=== PATIENT | male | born 1960 | race African-American/Black ===

== ENCOUNTER → 2020-05-15 12:58 | Outpatient (BNVA) | payer MEDICAID, SELFPAY | PROVIDERS: PCP Internal Medicine; Referring Provider Internal Medicine; Visit Provider Physician Assistant | DX: E66.01 Morbid (severe) obesity due to excess calories (principal); Z68.41 Body mass index [BMI] 40.0-44.9, adult | CPT/HCPCS: 99202; 99205 ==

== ENCOUNTER → 2020-05-22 09:14 | Outpatient (BNVA) | payer MEDICAID, SELFPAY | PROVIDERS: PCP Internal Medicine; Visit Provider Dietitian, Registered | DX: Z76.89 Persons encountering health services in other specified circumstances (principal) ==

== ENCOUNTER → 2020-07-09 08:10 | Outpatient (BNVA) | payer MEDICAID, SELFPAY | PROVIDERS: PCP Internal Medicine; Visit Provider Surgery | DX: Z76.89 Persons encountering health services in other specified circumstances (principal) ==

== ENCOUNTER → 2020-10-11 14:00 | Outpatient (BNVA) | payer MEDICARE, SELFPAY | PROVIDERS: Visit Provider Internal Medicine | DX: I51.7 Cardiomegaly (principal); I10 Essential (primary) hypertension; E66.01 Morbid (severe) obesity due to excess calories | CPT/HCPCS: 93005; 99212 ==

== ENCOUNTER → 2021-03-18 12:48 | Outpatient (BNVA) | payer OTHER, SELFPAY | PROVIDERS: Referring Provider Internal Medicine; Visit Provider Surgery | DX: K42.9 Umbilical hernia without obstruction or gangrene (principal); E66.01 Morbid (severe) obesity due to excess calories | CPT/HCPCS: 99202 ==

== ENCOUNTER 2021-04-16 07:39 | Day surgery (SDC) | payer OTHER, SELFPAY ==
[2021-04-10 14:36] VITALS: BMI 44.6
[2021-04-16] VITALS (8 sets, daily range): BP systolic 136–151; BP diastolic 70–91; PULSE 63–71; RESP 14–20; TEMP 36.2–36.6; O2SAT 94–99; BMI 43.5
--- NOTE | 2021-04-16 08:23 | HO.ANESPROP2 ---
[facility] Active Problems Active Problems: All Active Problems (Updated 07/09/20 @ 10:43 by Tim Gallegos MD) Umbilical hernia (Acute) Essential hypertension (Acute) LVH (left ventricular hypertrophy) (Acute) Knee pain (Acute) Hyperlipidemia (Acute) Non-insulin dependent diabetes mellitus (Acute) Morbid obesity (Acute) Past Medical History Medical History (Updated 03/18/21 @ 13:19 by Dereje Rouse MD) Essential hypertension Hyperlipidemia Hypertension Knee pain LVH (left ventricular hypertrophy) Non-insulin dependent diabetes mellitus IBAN on CPAP Pre-diabetes Umbilical hernia Family History Family History Father No problems noted. Mother No problems noted. Other Morbid obesity Family history of problems with anesthesia: No Surgical History Surgical History Hx of cholecystectomy Hx of knee surgery Morbid obesity History of Problems with Anesthesia: No Social History Social History Alcohol intake: former Patient Tobacco Use Status: Never used Tobacco Use of substances other than those prescribed or required for medical reasons: No Are you DNR?: No Advance Directives: No Advance Directives Information Provided: Yes Meds Allergies Allergy/AdvReac Type Severity Reaction Status Date / Time penicillin G Allergy Unknown hives Verified 03/18/21 13:04 Penicillins [PENICILLINS] Allergy Unknown RASH,TINGLING Verified 03/18/21 13:04 SENSATION Home Medications Medication Instructions Recorded Confirmed Last Taken Type acetaminophen 325 mg capsule 325 mg PO QID PRN 05/15/20 03/18/21 Unknown History amlodipine 10 mg tablet 10 mg PO DAILY 05/15/20 03/18/21 04/16/21 05:45 History atorvastatin 10 mg tablet 10 mg PO BEDTIME 05/15/20 03/18/21 04/16/21 05:45 History cholecalciferol (vitamin D3) 250 250 mcg PO DAILY 05/15/20 03/18/21 Unknown History mcg (10,000 unit) capsule losartan 100 mg tablet 100 mg PO DAILY 05/15/20 03/18/21 Unknown History meloxicam 15 mg tablet 15 mg PO DAILY 05/15/20 03/18/21 Unknown History metformin 850 mg tablet 850 mg PO DAILY 05/15/20 03/18/21 Unknown History metoprolol succinate 50 mg 50 mg PO DAILY 05/15/20 03/18/21 Unknown History tablet,extended release 24 hr spironolactone 25 mg tablet 25 mg PO DAILY 05/15/20 03/18/21 Unknown History chlorthalidone 25 mg tablet 25 mg PO DAILY 10/11/20 03/18/21 Unknown History cyclobenzaprine 5 mg tablet 5 mg PO BID 10/11/20 03/18/21 Unknown History diclofenac potassium 50 mg tablet 50 mg PO BID 03/18/21 03/18/21 Unknown History Exam Exam Date and Time: April 16, [id number] Height,Weight and Vital Signs: Height 5 ft 6 in Weight 122.47 kg Last Vital Signs Temp 97.1 F 04/16/21 08:01 Pulse 69 04/16/21 08:01 Resp 20 04/16/21 08:01 BP 146/89 H 04/16/21 08:01 Pulse Ox 97 04/16/21 08:01 Airway Mallampati Class: III TM Dist: <=3cm Neck ROM: Full Loose/Missing/Broken Teeth: No Heart: ok Lungs: ok Assessment and Plan Final Anesthetic Review Family History of Problems with Anesthesia: No History of Problems with Anesthesia: No NPO: Yes ASA Class: III Final Preanesthetic Review: No Changes in Pt Med Stat, Meds/Allgs Chart Reviewed, Consent Obtained/Reviewed and Anes Risks/Benef Reviewed Patient Risk: High Procedure Risk: Low Anesthetic Plan Anesthetic Plan: GA and Agree w/ Assess. and Plan Disposition: Standard PACU
[2021-04-16 08:24] LABS: Glucose, Whole Blood 117 mg/dL (60-115)
--- NOTE | 2021-04-16 08:24 | MHC.SHP ---
Pre-Procedural Eval Section A Date of Service: 04/16/21 Section B Chief Complaint: Umbilical Hernia Allergies: Allergies Allergy/AdvReac Type Severity Reaction Status Date / Time penicillin G Allergy Unknown hives Verified 03/18/21 13:04 Penicillins [PENICILLINS] Allergy Unknown RASH,TINGLING Verified 03/18/21 13:04 SENSATION Plan I have reviewed the history and physical and performed a pertinent physical examination on my patient. No changes have occurred unless specified.
[2021-04-16] MEDS: Lactated Ringers 1,000 ML 100 ML IVCONT (08:56)
--- NOTE | 2021-04-16 09:51 | P.OP_ITS ---
Operative Note Operative Note Date of Service: 04/16/21 Narrative: Preop diagnosis: Umbilical hernia Postop diagnosis: Umbilical hernia Procedure: Repair of umbilical hernia with Ventralex mesh Surgeon: Dereje Rouse MD temporary office assistant: SUSI Encinas Patient is a 60-year-old male with a reducible mass on the umbilicus consistent with an umbilical hernia. In view of symptoms he wanted to proceed with repair. He understood the technique of repair with mesh. He was aware of the risks, benefits, and alternatives He was brought to the operating room and placed supine on the table under general anesthesia via endotracheal tube. The abdomen is prepped and draped in the usual sterile fashion. A surgical time-out was done. The patient received cefazolin 2 g IV preoperatively. I infiltrated the planned line of incision using lidocaine 1%. I then made a transverse curvilinear incision on the supraumbilical margin using a blade 15. This was carried down through the full-thickness of skin and subcutaneous fat to expose the fascia. We then lifted up the umbilicus as a flap off of the rest of the fascia with sharp dissection. By doing so was able to see the umbilical hernia. This was fat containing. We continued to gently dissect the rest of the hernia off of the umbilicus. We continued to divide adhesions on the fascial margins that during this hernia. By doing so was able to eventually reduce the entire hernia contents. I sharply and bluntly dissected the underside to create space for the mesh around the fascial defect. The fascial defect was about 2.5 cm. I then positioned the medium-sized Ventralex mesh under the fascia to cover the entire defect. This was flattened. I then secured this mesh with a Prolene 2-0 stitch to each fascial strap on both sides. The fascial straps were then trimmed. I closed the fascial defect with a f [id number] Maxon 1 stitch I irrigated. I packed the umbilicus back to the fascia with a Dexon 3-0 stitch to re-create the dimple. The subdermal layer was reapposed Dexon 3-0 interrupted sutures. Skin closure was achieved with Dexon 4-0 subcuticular running stitch. The area was infiltrated with Marcaine 0.5 postop for postop analgesia. Steri-Strips and dressings were applied. The patient tolerated procedure well. There were no complication noted. Initial and final counts of sponges and instruments were correct. Estimated blood loss was about 2 cc. The patient was extubated without difficulty in the operating room and transferred to the recovery room with stable vital signs.
--- NOTE | 2021-04-16 09:55 | P.BOP_ITS ---
Brief Operative Note Date of Service: 04/16/21 Pre-op diagnosis: Umbilical hernia Post-op diagnosis: same Procedure: Repair of umbilical hernia with mesh Implants: Mesh Surgeon: Dereje Rouse MD Anesthesia: GETA Was an Sld Inclusion Teacher used for this Procedure?: Yes Sld Inclusion Teacher: Karrie Encinas Estimated blood loss (mL): 2 Pathology: none sent Condition: stable Disposition: PACU
[2021-04-16] MEDS: Acetaminophen 325 MG TABLET 650 MG PO (10:38)
[2021-04-16] MEDS: oxyCODONE HCl Immed Release 5 MG TABLET 10 MG PO (10:39)
== END 2021-04-16 12:10 | disposition home or self-care (01) ==
PROVIDERS: PCP Internal Medicine; Visit Provider Surgery
PROC: (CPT 49585; principal; 2021-04-16 09:10)
DX: K42.9 Umbilical hernia without obstruction or gangrene (principal); I10 Essential (primary) hypertension; E11.9 Type 2 diabetes mellitus without complications; E66.01 Morbid (severe) obesity due to excess calories; Z68.41 Body mass index [BMI] 40.0-44.9, adult; Z79.84 Long term (current) use of oral hypoglycemic drugs; Z79.899 Other long term (current) drug therapy; Z88.0 Allergy status to penicillin
CPT/HCPCS: 49585; 82947; C1781; J0690; J1100; J2250; J2405; J3010

== ENCOUNTER → 2021-05-01 10:42 | Outpatient (BNVA) | payer OTHER, SELFPAY | PROVIDERS: PCP Internal Medicine; Visit Provider Surgery | DX: K42.9 Umbilical hernia without obstruction or gangrene (principal); E66.01 Morbid (severe) obesity due to excess calories; I10 Essential (primary) hypertension; I51.7 Cardiomegaly; E78.5 Hyperlipidemia, unspecified; E11.9 Type 2 diabetes mellitus without complications; G47.33 Obstructive sleep apnea (adult) (pediatric); Z88.1 Allergy status to other antibiotic agents; Z99.89 Dependence on other enabling machines and devices; Z79.84 Long term (current) use of oral hypoglycemic drugs; Z79.899 Other long term (current) drug therapy | CPT/HCPCS: 99212 ==

== ENCOUNTER 2021-05-06 13:41 | Outpatient (REF) | payer OTHER, SELFPAY | END 2021-05-06 13:42 | disposition home or self-care (01) | LOC: HO.LNP 13:41 | PROVIDERS: PCP Internal Medicine; Referring Provider Internal Medicine; Visit Provider Surgery | DX: L98.9 Disorder of the skin and subcutaneous tissue, unspecified (principal) | CPT/HCPCS: 11402; 88304; 88305; 99212 ==

== ENCOUNTER → 2021-05-22 12:47 | Outpatient (BNVA) | payer OTHER, SELFPAY | PROVIDERS: PCP Internal Medicine; Referring Provider Internal Medicine; Visit Provider Surgery | DX: Z48.817 Encounter for surgical aftercare following surgery on the skin and subcutaneous tissue (principal); Z87.2 Personal history of diseases of the skin and subcutaneous tissue | CPT/HCPCS: 99212 ==

== ENCOUNTER → 2022-02-26 14:56 | Outpatient (BNVA) | payer OTHER, SELFPAY | PROVIDERS: PCP Internal Medicine; Referring Provider Internal Medicine; Visit Provider Internal Medicine | DX: I51.7 Cardiomegaly (principal); I10 Essential (primary) hypertension; E11.9 Type 2 diabetes mellitus without complications; E66.01 Morbid (severe) obesity due to excess calories; Z68.41 Body mass index [BMI] 40.0-44.9, adult | CPT/HCPCS: 93005; 99212 ==

== ENCOUNTER → 2022-03-31 09:58 | Outpatient (BNVA) | payer OTHER, SELFPAY | PROVIDERS: PCP Internal Medicine; Referring Provider Internal Medicine; Visit Provider Physician Assistant | DX: Z01.818 Encounter for other preprocedural examination (principal) | CPT/HCPCS: 99202 ==

== ENCOUNTER → 2022-04-01 09:14 | Outpatient (REF) | payer OTHER, SELFPAY ==
--- NOTE | 2022-04-01 09:21 | CA_ITS ---
Transthoracic Echocardiogram Patient (Last, First, Middle): Ross Wilkes, Gender: Male Date of : 1960 Age: 61 Procedure Date: 04/01/2022 Procedure Type: Transthoracic Echocardiogram Location: OP Height: 170.18 cm Weight: 129.28 kg BSA: 2.35 m2 Heart Rate: 63 bpm BP: 150 / 100 mmHg Shirrer: MINOO Frazier MD: Agustin Somers MD Hydraulic Barker Operator: Kendall Garvey MD Symptoms: I51.7 - Cardiomegaly Study Quality: Fair/Contrast ECG Rhythm: Sinus Conclusions: - 1. Normal LV systolic function with mild asymmetric septal hypertrophy with normal diastolic filling pattern 2. Normal cardiac valvular Doppler 3. No gross pericardial effusion Findings Procedure Information Contrast agent, definity, is being given per protocol without apparent complications. Left Ventricle Normal left ventricular size, thickness, and systolic function. The visually estimated ejection fraction is between 60-65%. Spectral Doppler is indicative of a normal filling pattern. There is mild septal asymmetric hypertrophy. Right Ventricle Normal right ventricular cavity size and systolic function. Atria The left atrium is normal in size. Interatrial shunt cannot be excluded. The right atrium was not well visualized. Aortic Valve The aortic valve was not well visualized. There is no aortic valve stenosis. There is no aortic valve regurgitation. Mitral Valve Normal mitral valve structure and function. There is trace mitral valve regurgitation. There is no mitral valve stenosis. Pulmonic Valve The pulmonic valve was not well visualized. Tricuspid Valve Likely normal tricuspid valve structure and function. Tricuspid regurgitation envelope is inadequate for calculation of right ventricular systolic pressure. Normal right atrial pressure. Great Vessels All visible segments of the aorta are normal in size. The pulmonary artery was not well visualized. Venous The inferior vena cava is normal in size. Pericardium/Pleural There is no evidence of pericardial effusion. Measurements 2D Linear Measurements IVSd: 1.56 0.6-0.9/0.6-1.0 cm LVIDd: 3.70 3.9-5.3/4.2-5.9 cm LVIDd Index: 1.57 2.4-3.2/2.2-3.1 cm/m2 LVIDs: 2.77 2.0-3.6 cm LVPWd: 1.12 0.7-1.1 cm Ao Root: 3.30 2.1-3.5 cm LA Diam: 4.10 2.7-3.8/3.0-4.0 cm LAIDs Index: 1.74 1.5-2.3 cm/m2 LV Mass: 217.40 67-162/88-224 g LV Mass Index: 92.51 43-95/49-115 g/m2 LVOT Diam: 1.90 3.0+(-)1.3 cm 2D Systolic Function EF 4C: 67.50 >55% EF 2C: 58.10 >55% EF BiP: 61.20 >55% Mitral Valve MV Pk E: 0.79 MV PK A: 0.88 MV Decel Time: 219.00 E/A: 0.90 E'Lateral: 8.49 E'Medial: 7.72 E/E' Med: 10.30 E/E' Lat: 9.30 PHT: 64.00 MVA PHT: 3.44 Decel [place]: 3.61 Aortic Valve AoV Pk Alban: 1.58 AoV Mn Alban: 1.11 AoV VTI: 0.35 AoV Pk Grad: 10.00 Aov Mn Grad: 6.00 FADI Cont.VTI: 2.02 LVOT LVOT Pk [place]: 1.02 LVOT Mn [place]: 0.78 LVOT VTI: 0.25 LVOT Pk Grad: 4.00 LVOT Mn Grad: 3.00 LVOT Diam: 1.90 LVOT Area: 2.84 Diastolic Function MV Pk E: 0.79 MV Pk A: 0.88 E/A: 0.90 E'Medial: 7.72 E/E' Med: 10.30 E' Laterial: 8.49 E/E' Lat: 9.30 Right Ventricle TAPSE (mm): 27.00 TVS' Alban: 10.60 Tricuspid Valve RA Press: 3.00 Great Vessels Aorta Ao Root-2D: 3.30 2.0-3.7 cm Ao Asc: 3.40 2.1-3.4 cm Pulmonary Valve PV Pk Alban: 0.86 Peak PV Grad: 3.00 Updated in Other Vendor System with Status of Final Kendall Garvey MD electronically signed on 04/02/2022 5:42:35 PM with status of Final
== END ==
LOC: HO.CARD 09:14
PROVIDERS: Visit Provider Internal Medicine
DX: I51.7 Cardiomegaly (principal)
CPT/HCPCS: 93306; Q9957

== ENCOUNTER → 2022-06-10 13:11 | Outpatient (BNVA) | payer OTHER, SELFPAY | PROVIDERS: PCP Internal Medicine; Referring Provider Internal Medicine; Visit Provider Nurse Practitioner Family | DX: Z01.810 Encounter for preprocedural cardiovascular examination (principal); R06.02 Shortness of breath; I51.7 Cardiomegaly; I10 Essential (primary) hypertension; E66.01 Morbid (severe) obesity due to excess calories; Z68.41 Body mass index [BMI] 40.0-44.9, adult; Z79.899 Other long term (current) drug therapy | CPT/HCPCS: 99212 ==

== ENCOUNTER 2022-08-06 07:23 | Day surgery (SDC) | payer OTHER, SELFPAY ==
[2022-08-01 15:13] VITALS: BMI 44.1
--- NOTE | 2022-08-05 12:23 | HO.ANESPROP2 ---
Documented by User: Rosa Tavera NP 08/05/22 12:33 HPI - Anesthesia Eval Consult details Narrative: 62yo M for Colonoscopy Cardiac cleared [facility] Active Problems Active Problems: All Active Problems (Updated 07/09/20 @ 10:43 by Tim Gallegos MD) Preop cardiovascular exam (Acute) Shortness of breath (Acute) Encounter for screening colonoscopy (Acute) Skin lesion of back (Acute) Umbilical hernia (Acute) Essential hypertension (Acute) LVH (left ventricular hypertrophy) (Acute) Knee pain (Acute) Hyperlipidemia (Acute) Non-insulin dependent diabetes mellitus (Acute) Morbid obesity (Acute) Past Medical History Medical History Essential hypertension Hyperlipidemia Hypertension Knee pain LVH (left ventricular hypertrophy) Non-insulin dependent diabetes mellitus IBAN on CPAP Pre-diabetes Skin lesion of back Umbilical hernia Family History Family History Father No problems noted. Mother No problems noted. Other Morbid obesity Family history of problems with anesthesia: No Surgical History Surgical History Hx of cholecystectomy Hx of knee surgery Morbid obesity History of Problems with Anesthesia: No Social History Social History Alcohol intake: former Patient Tobacco Use Status: Never used Tobacco Advance Directives: No Advance Directives Information Provided: Yes Meds Allergies Allergy/AdvReac Type Severity Reaction Status Date / Time penicillin G Allergy Unknown hives Verified 06/10/22 13:54 Home Medications Medication Instructions Recorded Confirmed Last Taken Type amlodipine 10 mg tablet 10 mg PO DAILY 05/15/20 06/10/22 04/16/21 05:45 History cholecalciferol (vitamin D3) 250 250 mcg PO DAILY 05/15/20 06/10/22 Unknown History mcg (10,000 unit) capsule losartan 100 mg tablet 100 mg PO DAILY 05/15/20 06/10/22 Unknown History metoprolol succinate 50 mg 50 mg PO DAILY 05/15/20 06/10/22 Unknown History tablet,extended release 24 hr chlorthalidone 25 mg tablet 25 mg PO DAILY 10/11/20 06/10/22 Unknown History diclofenac potassium 50 mg tablet 50 mg PO BID 03/18/21 06/10/22 Unknown History testosterone cypionate 200 mg/mL mg IM 03/31/22 06/10/22 Unknown History intramuscular oil metformin 850 mg tablet 850 mg PO BID 06/10/22 06/10/22 Unknown History Exam Exam Date and Time: August 05, 2022 1223 Height,Weight and Vital Signs: Height 5 ft 7 in Weight 127.8 kg Narrative Narrative: ECHO 03/2022 Conclusions: - 1.? Normal LV systolic function with mild asymmetric septal? ? hypertrophy with normal diastolic filling pattern? 2.? Normal cardiac valvular Doppler? 3.? No gross pericardial effusion? EKG 02/2022 NSR @ 70 Assessment and Plan Assessment Anesthesia Assessment: Chart Reviewed Final Anesthetic Review Family History of Problems with Anesthesia: No History of Problems with Anesthesia: No Documented by User: Andrea Young MD 08/06/22 08:05 [facility] Past Medical History Medical History Essential hypertension Hyperlipidemia Hypertension Knee pain LVH (left ventricular hypertrophy) Non-insulin dependent diabetes mellitus IBAN on CPAP Pre-diabetes Skin lesion of back Umbilical hernia Family History Family History Father No problems noted. Mother No problems noted. Other Morbid obesity Family history of problems with anesthesia: No Surgical History Surgical History Hx of cholecystectomy Hx of knee surgery Morbid obesity History of Problems with Anesthesia: No Social History Social History Alcohol intake: former Patient Tobacco Use Status: Never used Tobacco Advance Directives: No Advance Directives Information Provided: Yes Meds Allergies Allergy/AdvReac Type Severity Reaction Status Date / Time penicillin G Allergy Unknown hives Verified 06/10/22 13:54 Home Medications Medication Instructions Recorded Confirmed Last Taken Type amlodipine 10 mg tablet 10 mg PO DAILY 05/15/20 06/10/22 04/16/21 05:45 History cholecalciferol (vitamin D3) 250 250 mcg PO DAILY 05/15/20 06/10/22 Unknown History mcg (10,000 unit) capsule losartan 100 mg tablet 100 mg PO DAILY 05/15/20 06/10/22 Unknown History metoprolol succinate 50 mg 50 mg PO DAILY 05/15/20 06/10/22 Unknown History tablet,extended release 24 hr chlorthalidone 25 mg tablet 25 mg PO DAILY 10/11/20 06/10/22 Unknown History diclofenac potassium 50 mg tablet 50 mg PO BID 03/18/21 06/10/22 Unknown History testosterone cypionate 200 mg/mL mg IM 03/31/22 06/10/22 Unknown History intramuscular oil metformin 850 mg tablet 850 mg PO BID 06/10/22 06/10/22 Unknown History Exam Airway Mallampati Class: III TM Dist: <=3cm Neck ROM: Full Heart: ok Lungs: ok Assessment and Plan Assessment Anesthesia Assessment: Anesthesia Plan Discussed and Chart Reviewed Final Anesthetic Review Family History of Problems with Anesthesia: No History of Problems with Anesthesia: No NPO: Yes ASA Class: III Final Preanesthetic Review: No Changes in Pt Med Stat, Meds/Allgs Chart Reviewed, Consent Obtained/Reviewed and Anes Risks/Benef Reviewed Patient Risk: Intermediate Procedure Risk: Low Anesthetic Plan Anesthetic Plan: MAC: and Agree w/ Assess. and Plan Disposition: Standard PACU
[2022-08-06 08:19] VITALS: BMI 45.1
[2022-08-06 08:20] VITALS: BP 157/94; PULSE 77; RESP 18; TEMP 36.6; O2SAT 95
[2022-08-06 08:26] LABS: Glucose, Whole Blood 107 mg/dL (60-115)
[2022-08-06] MEDS: Lactated Ringers 1,000 ML 50 ML IVCONT (08:52)
--- NOTE | 2022-08-06 08:54 | MHC.SHP ---
Pre-Procedural Eval Section A Date of Service: 08/06/22 Section B Chief Complaint: screening Relevant Family History (Specify if Yes): No Relevant Social History: None Present Medications: see Short Stay Collaborative assessment Medical History: Significant History (Essential hypertension Hyperlipidemia Hypertension Knee pain LVH (left ventricular hypertrophy) Non-insulin dependent diabetes mellitus IBAN on CPAP Pre-diabetes Skin lesion of back Umbilical hernia) History of Previous Operations: Relevant previous surgery/procedure and date(s) (Hx of cholecystectomy Hx of knee surgery Morbid obesity) Allergies: Allergies Allergy/AdvReac Type Severity Reaction Status Date / Time penicillin G Allergy Unknown hives Verified 06/10/22 13:54 Review of Systems Sugical H&P ROS: Negative: Constitution, Cardiovascular, Respiratory, Neurological, Psychiatric, Hem-Onc, Allergic/Immunologic, Gastrointestinal, Genitourinary, Musculoskeletal, Integumentary, Endocrine and Eyes/Ears/Nose/Throat Exam Surgical H&P Exam: Normal: HEENT, Normal: Heart, Normal: Lungs, Normal: Extremities, Normal: Abdomen, Normal: Skin and Normal: Neurological Exam Comment: obese Plan Diagnosis/Plan: Unchanged I have reviewed the history and physical and performed a pertinent physical examination on my patient. No changes have occurred unless specified. Time Spent With Patient Time: Total time managing care of this patient today ____ minutes.
--- NOTE | 2022-08-06 08:56 | W.PM.OPN ---
Operative Note Operative Note Date of Service: 08/06/22 Narrative: Operative Information Procedure Description: Colonoscopy Indication: screening Anesthesia: MAC COLONOSCOPY Instrument: Olympus variable stiffness Adult scope 190L Colonoscopy Monitoring: Vital signs and clinical assessment, continuous EKG monitoring, Pulse oximetry, Carbon Dioxide monitoring and blood pressure monitoring were done throughout the procedure. Colon withdrawal time was 14 minutes. Procedure: The patient was placed in the left lateral decubitis position and pre-procedure medications were administered. After a digital rectal examination of the ano-rectum, the video colonoscope was inserted into the rectum and advanced through the colon to the cecum/TI. The colonoscope was slowly withdrawn in a retrograde panoramic fashion and the colon mucosa was carefully examined including a retroflexed view of the rectum. Findings and interventions are described below. Procedure Difficulty: easy Findings: Terminal Ileum-normal Cecum:normal Ascending Colon: normal Transverse Colon - 7-8 mm sessile polyp removed with cold snare Descending Colon:normal Sigmoid Colon: mild to moderate diverticulosis Rectum: Retroflexion with small internal hemorrhoids, grade I Anorectum - normal Colon preparation: [place] Bowel Preparation Scale Right colon; 3 Transverse colon: 3 Left colon; 3 (0 = Unprepared colon segment with mucosa not seen due to solid stool that cannot be cleared. 1 = Portion of mucosa of the colon segment seen, but other areas of the colon segment not well seen due to staining, residual stool and/or opaque liquid. 2 = Minor amount of residual staining, small fragments of stool and/or opaque liquid, but mucosa of colon segment seen well. 3 = Entire mucosa of colon segment seen well with no residual staining, small fragments of stool or opaque liquid) Impression and Post Procedure Diagnosis: polyp internal hemorrhoids diverticular disease Plan: High fiber diet leaflet Avoid straining at stool, epsom salts and sitz bath, anusol supps or cream Repeat Colonoscopy in 5-7 years due to adenomatous appearing polyp or earlier if clinically indicated Above findings were reviewed with the patient and relevant handouts were provided if indicated.
[2022-08-06 09:33] VITALS: BP 156/88; PULSE 84; RESP 16; TEMP 37.4; O2SAT 92
[2022-08-06 09:48] VITALS: BP 162/94; PULSE 89; RESP 16; TEMP 37; O2SAT 96
== END 2022-08-06 11:05 | disposition home or self-care (01) ==
PROVIDERS: PCP Internal Medicine; Visit Provider Internal Medicine Gastroenterology
PROC: 0DJD8ZZ Inspection of Lower Intestinal Tract, Via Natural or Artificial Opening Endoscopic (ICD-10-PCS; CPT 45378; principal; 2022-08-06 09:10)
DX: Z12.11 Encounter for screening for malignant neoplasm of colon (principal); D12.3 Benign neoplasm of transverse colon; K57.30 Diverticulosis of large intestine without perforation or abscess without bleeding; K64.0 First degree hemorrhoids; I10 Essential (primary) hypertension; I51.7 Cardiomegaly; E78.5 Hyperlipidemia, unspecified; G47.33 Obstructive sleep apnea (adult) (pediatric); E11.9 Type 2 diabetes mellitus without complications; Z79.84 Long term (current) use of oral hypoglycemic drugs; Z79.899 Other long term (current) drug therapy; Z99.89 Dependence on other enabling machines and devices; Z88.0 Allergy status to penicillin; Z90.49 Acquired absence of other specified parts of digestive tract
CPT/HCPCS: 45385; 82947; 88305

== ENCOUNTER → 2022-08-21 10:02 | Outpatient (BNVA) | payer OTHER, SELFPAY | PROVIDERS: PCP Internal Medicine; Visit Provider Physician Assistant | DX: K57.30 Diverticulosis of large intestine without perforation or abscess without bleeding (principal); K64.9 Unspecified hemorrhoids; D12.6 Benign neoplasm of colon, unspecified | CPT/HCPCS: 99212 ==